=== PATIENT | female | born 1945 | race Caucasian/White ===

== ENCOUNTER → 2024-12-06 | Outpatient (CLI) | payer OTHER, SELFPAY ==
[2024-12-06 18:42] LABS: Anion Gap 17 (5-15); BUN 11 mg/dL (4-19); BUN/Creat Ratio 11.2 RATIO (10-20); Calcium,Total 9.6 mg/dL (7.6-11.0); Carbon Dioxide 22.3 mmol/L (21.0-32.0); Chloride 100 mmol/L (98-108); Cholesterol 261 mg/dL (<=200); Glucose 102 mg/dL (70-99); Low Density Lipoprotein Calc. 156 mg/dL; Potassium 3.8 mmol/L (3.3-5.1); Triglycerides 198 mg/dL; Very Low Density Lipoprotein 40 mg/dL (5-40); cholesterol:hdl ratio screen 4.00
== END | disposition home or self-care (01) ==
LOC: MFPLAB 14:17
PROVIDERS: PCP Family Medicine; Referring Provider Family Medicine; Visit Provider Family Medicine
DX: Z00.00 Encounter for general adult medical examination without abnormal findings (principal)
CPT/HCPCS: 36415; 80048; 80061

== ENCOUNTER → 2025-01-10 | Outpatient (CLI) | payer MEDICARE, SELFPAY ==
--- NOTE | 2025-01-10 12:38 | BI_ITS ---
EXAM: SCRN MAMM (CAD)W/MARY BILAT DATE: 01/10/2025 CLINICAL HISTORY: F, Age 79 y/o , SCREENING No family history. TECHNIQUE: Procedure Code: BISMWCADBTOM Modality: MG Procedure: SCRN MAMM (CAD)W/MARY BILAT COMPARISON: Prior exam(s) dated December 17, 2020.. FINDINGS: TISSUE DENSITY: The breasts are extremely dense, which lowers the sensitivity of mammography. Bilateral Breast Mammographic Findings: No significant masses, calcifications or other abnormalities are identified. Stable benign-appearing bilateral axillary lymph nodes. No suspicious masses, areas of developing architectural distortion, or suspicious calcifications. There has been no significant interval change. BI/SCRN MAMM (CAD)W/MARY BILAT IMPRESSION: Stable bilateral screening mammogram. OVERALL FINAL ASSESSMENT BI-RADS 2: BENIGN RECOMMENDATION: Routine annual follow-up in 1 Year A letter with findings and recommendations will be mailed to the patient. [id number]
== END | disposition home or self-care (01) ==
LOC: OPBI 12:35
PROVIDERS: PCP Family Medicine; Referring Provider Family Medicine; Visit Provider Family Medicine
DX: Z12.31 Encounter for screening mammogram for malignant neoplasm of breast (principal)
CPT/HCPCS: 77063; 77067

== ENCOUNTER → 2025-01-29 | Outpatient (CLI) | payer MEDICARE, SELFPAY ==
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
--- OUTSIDE RECORDS SUMMARY | 2025-01-29 14:32 | XMS RPT_ITS | CCD ---
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 Banks Primary Care Provider Lissa COLE, Dr. Banks Attending Provider Lissa COLE, Dr. Banks Referring Provider [phone] Darren Alcaraz Primary Care Unavailable Darren Alcaraz Attending Unavailable Lissa, Darren Referring Unavailable Darren Alcaraz Primary Care Unavailable Darren Alcaraz Attending Unavailable Darren Alcaraz Referring Unavailable Lissa, Darren Primary Care Unavailable Darren Alcaraz Attending Unavailable Problems Problem Classification Problem Date Documented Da te Episodic/Chronic Other gastrointestinal disorders (1 source) Dysphagia, unspecified; Translations: [Dysphagia, unspecified] Onset: 01-23-2025 Episodic Other screening for suspected conditions (not mental disorders or infectious disease) (1 source) Encounter for screening mammogram for malignant neoplasm of breast; Translations: [Encounter for screening mammogram for malignant neoplasm of breast] Onset: 01-18-2025 Episodic Results Test Name Value Interpretation Reference Range Facility Breast imaging reportOrdered By: Guillermo Bingham on 01-10-2025 Study report [facility] [address] [place] [address] SCRN MAMM (CAD)W/MARY BILAT MR#: [id number] Acct: [id number] Name: ANT AMADOR Rep #: [id number] : 1945 F 79 From: Peter Bingham MD PCP: Dr. Darren Alcaraz MD Status: CARLOTA SCHULZ Study:SCRN MAMM (CAD)W/MARY BILAT Date of Exa m: 01/10/25 Exam# [id number] Ordering Dr: Darren Alcaraz MD EXAM: SCRN MAMM (CAD)W/MARY BILAT DATE: 01/10/2025 CLINICAL HISTORY: F, Age 79 y/o , SCREENING No family history. TECHNIQUE: Procedure Code: BISMWCADBTOM Modality: MG Procedure: SCRN MAMM (CAD)W/MARY BILAT COMPARISON: Prior exam(s) dated December 17, 2020.. FINDINGS: TISSUE DENSITY: The breasts are extremely dense, which lowers the sensitivity ofmammography. Bilateral Breast Mammographic Findings: No significant masses, calcifications or other abnormalities are identified. Stable benign-appearing bilateral axillary lymph nodes. No suspicious masses, areas of developing architectural distortion, or suspicious calcifications. There has been no significant interval change. BI/SCRN MAMM (CAD)W/MARY BILAT IMPRESSION: Stable bilateral screening mammogram. OVERALL FINAL ASSESSMENT BI-RADS 2: BENIGN RECOMMENDATION: Routine annual follow-up in 1 Year A letter with findings and recommendations will be mailed to the patient. Reading [id number] CC: Dr. Darren Alcaraz MD ~ Press Box Custodian: Signed [facility] SCRN MAMM (CAD)W/MARY BILATo n 01-10-2025 SCRN MAMM (CAD)W/MARY BILAT [facility] Imaging Services [address] [place] [address] SCRN MAMM (CAD)W/MRAY BILAT MR#: [id number] Acct: [id number] Name: ANT AMADOR ARETHA Rep #: [id number] : 1945 F 79 From: Guillermo alegria MD PCP: Dr. Darren Alcaraz MD Status: [facility] Study: SCRN MAMM (CAD)W/MARY BILAT Date of Exam: 08/31 Exam# [id number] Ordering Dr: Darren Alcaraz MD EXAM: SCRN MAMM (CAD)W/MARY BILAT DATE: 01/10/2025 CLINICAL HISTORY: F, Age 79 y/o , SCREENING No family history. TECHNIQUE: Procedure Code: BISMWCADBTOM Modality: MG Procedure: SCRN MAMM (CAD)W/MARY BILAT COMPARISON: Prior exam(s) dated December 17, 2020.. FINDINGS: TISSUE DENSITY: The breasts are extremely dense, which lowers the sensitivity of mammography. Bilateral Breast Mammographic Findings: No significant masses, calcifications or other abnormalities are identified. Stable benign- appearing bilateral axillary lymph nodes. No suspicious masses, areas of developing architectural distortion, or suspicious calcifications. There has been no significant interval change. BI/SCRN MAMM (CAD)W/MARY BILAT IMPRESSION: Stable bilateral screening mammogram. OVERALL FINAL ASSESSMENT BI-RADS 2: BENIGN RECOMMENDATION: Routine annual follow-up in 1 Year A letter with findings and recommendations will be mailed to the patient. Reading [id number] CC: Dr. Darren Alcaraz MD Press Box Custodian: Signed Normal [facility] Anion gap in Serum or Plasma Ordered By: Darren Alcaraz on 12-06-2024 Anion gap [Moles/Vol] 17 mmol/L High 5-15 [facility] BUN/creatinine ratioOrdered By: Darren Alcaraz on 12-06-2024 Urea nitrogen/Creatinine [Mass ratio] 11.2 mg/mg 10- [facility] Basic Metabolic Profile (BMP )on 12-06-2024 BUN/CRE 11.2 RATIO Normal - [facility] Comment on above: Performed By: #### L 500.2500, L500.4100 #### [facility] [address] [place], [address] Calcium [Mass/Vol] 9.6 mg/dL Normal 7.6-11.0 [facility] Comment on above: Performed By: #### L 500.2500, L500.4100 #### [facility] [address] [place], [address] Chloride [Moles/Vol] 100 mmol/L Normal 98-108 [facility] Comment on above: Performed By: #### L 500.2500, L500.4100 #### [facility] [address] [place], [address] CO2 [Moles/Vol] 22.3 mmol/L Normal 21.0-32.0 [facility] Comment on above: Performed By: #### L 500.2500, L500.4100 #### [facility] [address] [place], [address] Creatinine [Mass/Vol] 1.01 mg/dL Normal 0.70-1.20 [facility] Comment on above: Performed By: #### L 500.2500, L500.4100 #### [facility] [address] [place], [address] GAP 17 High 5-15 [facility] Comment on above: Performed By: #### L 500.2500, L500.4100 #### [facility] [address] [place], [address] GFR/1.73 sq M.predicted among non-blacks MDRD (S/P/Bld) [Vol rate/Area] 57 mL/min/{1.73_m2} Low >60 [facility] Comment on above: Result Comment: mL/m in/1.73m2 CKD-EPI Creatinine Equation (2020) Performed By: #### L 500.2500, L500.4100 #### [facility] [address] [place], [address] Glucose [Mass/Vol] 102 mg/dL High 70-99 [facility] Comment on above: Performed By: #### L 500.2500, L500.4100 #### [facility] [address] [place], [address] Potassium [Moles/Vol] 3.8 mmol/L Normal 3.3-5.1 [facility] Comment on above: Performed By: #### L 500.2500, L500.4100 #### [facility] [address] [place], [address] Sodium [Moles/Vol] 140 mmol/L Normal 133-145 [facility] Comment on above: Performed By: #### L 500.2500, L500.4100 #### [facility] [address] [place], [address] Urea nitrogen [Mass/Vol] 11 mg/dL Normal 4-19 [facility] Comment on above: Performed By: #### L 500.2500, L500.4100 #### [facility] [address] [place] [place], [address] Calculated very low density lipoprotein (VLDL) cholesterol measurementOrdered By: Darren Alcaraz on 12-06-2024 Calculated very low density lipoprotein (VLDL) cholesterol measurement 40 mg/dL 5-40 [facility] Carbon dioxide, total [Moles /volume] in Central venous bloodOrdered By: Darren Alcaraz on 12-06-2024 CO2 [Moles/Vol] 22.3 mmol/L 21.0-32.0 [facility] Chloride assayOrdered By: Lux Alcaraz on 12-06-2024 Chloride [Moles/Vol] 100 mmol/L 98-108 [facility] Glomerular filtration rate ( GFR) estimation/1.73 sq m using serum, plasma, or whole bOrdered By: Darren Alcaraz on 12-06-2024 GFR/1.73 sq M.predicted among non-blacks MDRD (S/P/Bld) [Vol rate/Area] 57 mL/min/{1.73_m2} Low >60 [facility] Comment on above: mL/min/1.73m2 CKD-EP I Creatinine Equation (2020) LDL calc ser/plasOrdered By: Darren Alcaraz on 12-06-2024 Cholesterol in LDL [Mass/Vol] 156 mg/dL [facility] Comment on above: Lkltkuoaah=554-786 m g/dL & Higher Galy=730 mg/dL or greaterFriedwald Equation for LDL-C Lipid Profileon 12-06-2024 CHOL:HDL 4.00 Normal [facility] Comment on above: Performed By: #### L 500.2500, L500.4100 #### [facility] [address] [place], [address] Cholesterol [Mass/Vol] 261 mg/dL High <=200 [facility] Comment on above: Result Comment: Chol esterol level, Desirable <200 mg/dL Borderline high cholesterol 200-239 mg/dL High cholesterol >=240 mg/dL Recommendations of the NCEP Adult Treatment Panel for the following risk-cutoff thresholds for the [place] population. Performed By: #### L 500.2500, L500.4100 #### [facility] [address] [place], [address] Cholesterol in HDL [Mass/Vol] 65 mg/dL Normal [facility] Comment on above: Result Comment: Saira onal Cholesterol Education Program (NCEP) guidelines: <40 mg/dL: Low HDL-cholesterol (major risk factor for CHD) >= 60 mg/dL: High HDL-cholesterol (negative risk factor for CHD) HDL-cholesterol is affected by a number of factors, e.g. smoking, exercise, hormones, sex and age. Performed By: #### L 500.2500, L500.4100 #### [facility] [address] [place], [address] Cholesterol in LDL [Mass/Vol] 156 mg/dL Normal [facility] Comment on above: Result Comment: Bord gyzhrf=609-433 mg/dL Higher Ggql=631 mg/dL or greater Friedwald Equation for LDL-C Performed By: #### L 500.2500, L500.4100 #### [facility] [address] [place], [address] Cholesterol in VLDL [Mass/Vol] 40 mg/dL Normal 5-40 [facility] Comment on above: Performed By: #### L 500.2500, L500.4100 #### [facility] [address] [place], [address] Triglyceride [Mass/Vol] 198 mg/dL Normal [facility] Comment on above: Result Comment: The drugs N-Acetylcysteine and Metamizole may falsely depress this assay. Normal range: <150 mg/dL Borderline High: 150-199 mg/dL High: 200-499 mg/dL Very High: >500 mg/dL Performed By: #### L 500.2500, L500.4100 #### [facility] [address] [place], [address] Potassium measurement (mass/ volume)Ordered By: Darren Alcaraz on 12-06-2024 Potassium (Unsp spec) [Mass/Vol] 3.8 mmol/L 3.3-5.1 [facility] Screening total cholesterol/ high density lipoprotein (HDL) cholesterol ratioOrdered By: Darren Alcaraz on 12-06-2024 Cholesterol.total/Fatimah sterol in HDL [Mass ratio] 4.00 {ratio} [facility] Serum creatinine measurement (mass/volume)Ordered By: Darren Alcaraz on 12-06-2024 Creatinine [Mass/Vol] 1.01 mg/dL 0.70-1.20 [facility] Serum glucose measurement (m ass/volume)Ordered By: Darren Alcaraz on 12-06-2024 Glucose [Mass/Vol] 102 mg/dL High 70-99 [facility] Serum or plasma calcium matt urement (mass/volume)Ordered By: Darren Alcaraz on 12-06-2024 Calcium [Mass/Vol] 9.6 mg/dL 7.6-11.0 [facility] Serum or plasma cholesterol in HDL measurement (mass/volume)Ordered By: Darren Alcaraz on 12-06-2024 Cholesterol in HDL [Mass/Vol] 65 mg/dL >40 [facility] Comment on above: National Cholesterol Education Program (NCEP) guidelines:<40 mg/dL: Low HDL-cholesterol (major risk factor for CHD)>= 60 mg/dL: High HDL-cholesterol (negative risk factor for CHD)HDL-cholesterol is affected by a number of factors, e.g. smoking, exercise, hormones, sex and age. Serum or plasma cholesterol measurement (mass/volume)Ordered By: Darren Alcaraz on 12-06-2024 Cholesterol [Mass/Vol] 261 mg/dL High <201 [facility] Comment on above: Cholesterol level, D esirable <200 mg/dLBorderline high cholesterol 200-239 mg/dLHigh cholesterol >=240 mg/dLRecommendations of the NCEP Adult Treatment Panel for the following risk-cutoff thresholds for the [place] population. Serum or plasma urea nitroge n measurement (mass/volume)Ordered By: Darren Alcaraz on 12-06-2024 Urea nitrogen [Mass/Vol] 11 mg/dL 4-19 [facility] Sodium levelOrdered By: Darren Alcaraz on 12-06-2024 Sodium [Moles/Vol] 140 mmol/L 133-145 [facility] Triglycerides measurementOrd ered By: Darren Alcaraz on 12-06-2024 Triglyceride [Mass/Vol] 198 mg/dL <199 [facility] Comment on above: The drugs N-Acetylcy steine and Metamizole may falsely depress this assay. Normal range: <150 mg/dLBorderline High: 150-199 mg/dLHigh: 200-499 mg/dLVery High: >500 mg/dL Encounters Encounter Date Encounter Type Care Provider Facility Start: 01-22-2025 Encounter for genera l adult medical examination without abnormal findings Darren Alcaraz [facility] Start: 01-10-2025 End: 01-10-[address] Darren Alcaraz MD Work Phone: -Outpatient Breast Imaging Start: 01-10-2025 End: 01-10-[address] Darren Alcaraz MD -Outpatient Breast Imaging Work Phone: Start: 01-10-2025 End: 01-10-2025 ambulatory Darren Alcaraz Facility:[facility] Start: 12-06-2024 End: 12-06-[address] Darren Alcaraz MD Work Phone: -Laboratory [facility] Start: 12-06-2024 End: 12-06-[address] Darren Alcaraz MD -Laboratory [facility] Start: 12-06-2024 End: 12-06-2024 ambulatory Darren Alcaraz Facility:[facility] Procedures Date Procedure Procedure Detail Performing Clinician Start: 01-10-2025 Screening mammography Ross Alcaraz MD Work Phone: Plan of Treatment Date Care Activity Detail Author Start: 01-29-2025 ambulatory Ambulatory Facility:[facility] Payers Date Payer Category Payer Private Health Insurance [id number] 2024 Self-pay Unknown [id number] Unknown [id number] Unknown [id number] Social History Date Type Detail Facility Tobacco smoking stat [facility] Unknown if ever smoked [facility] Work Phone: Start: 1945 Sex Assigned At Female W [facility] Evaluation note Note Date & Type Note Facility Evaluation note No assessment information availa ble [facility] Work Phone: Reason for referral (narrative) Note Date & Type Note Facility Reason for referral (narrative) No reason for referral information available [facility] Work Phone: Chief Complaint and Reason for Visit Chief Complaint Admit Date SCREENING January 10, 2025 12:31pm Summary Purpose Family History No Family History Records Found Advance Directives No Advanced Directives Records Found Additional Source Comments Care Teams (unrecognized sec tion and content) Team Status: Active Member Role/Relationship Status Dates Dr. Zeb Hung MD Family Provider Active Dr. Darren Alcaraz MD Primary Care Provider Active Team Status: Inactive Member Role/Relationship Status Dates Dr. Darren Alcaraz MD Primary Care Provider Active Start: December 06, 2024 End: December 06, 2024 Dr. Darren Alcaraz MD Attending Provider Active Start: December 06, 2024 End: December 06, 2024 Dr. Darren Alcaraz MD Referring Provider Active Start: December 06, 2024 End: December 06, 2024 Team Status: Active Member Role/Relationship Status Dates Dr. Darren Alcaraz MD Primary Care Provider Active Team Status: Inactive Member Role/Relationship Status Dates Dr. Darren Alcaraz MD Primary Care Provider Active Start: January 10, 2025 End: January 10, 2025 Dr. Darren Alcaraz MD Attending Provider Active Start: January 10, 2025 End: January 10, 2025 Dr. Darren Alcaraz MD Referring Provider Active Start: January 10, 2025 End: January 10, 2025 Goals (unrecognized section and content) Goals may be documented in a n alternate sectionGoals may be documented in an alternate section INFORMATION SOURCE (unrecogn ized section and content) DATE CREATED AUTHOR 01/25/2025 [facility] FOR RECORDS PERTAINING TO PATIENTS WHO ARE OR HAVE BEEN ENROLLED IN A CHEMICAL DEPENDENCY/SUBSTANCEABUSE PROGRAM, SOME INFORMATION MAY BE OMITTED. This clinical summary was aggregated from multiple sources. Caution should be exercised in using it in the provision of clinical care. This summary normalizes information from multiple sources, and as a consequence, information in this document may materially change the coding, format and clinical context of patient data. In addition, data may be omitted in some cases. CLINICAL DECISIONS SHOULD BE BASED ON THE PRIMARY CLINICAL RECORDS. [facility]. provides no warranty or guarantee of the accuracy or completeness of information in this document.
== END | disposition home or self-care (01) ==
PROVIDERS: PCP Family Medicine; Referring Provider Family Medicine; Visit Provider Family Medicine
DX: Z00.00 Encounter for general adult medical examination without abnormal findings (principal); R13.10 Dysphagia, unspecified
CPT/HCPCS: 74230; 92611